=== PATIENT | female | born 1990 | race African-American/Black ===

== ENCOUNTER 2021-08-14 16:09 | Emergency (ER) | payer OTHER, SELFPAY ==
[2021-08-14 16:20] VITALS: BP 146/85; PULSE 100; RESP 18; TEMP 36.6; O2SAT 99
--- NOTE | 2021-08-14 16:43 | ED.URI ---
HPI - URI/Sore Throat General Chief Complaint: Upper Respiratory Infection Stated Complaint: Cough,Swelling Rt Neck,Headache Time Seen by Provider: 08/14/21 16:43 History of Present Illness HPI Narrative: Verna Palomino is a 31 yo female with PMH of hypothyroid, anxiety and depression, who comes to express care for a stiff neck and headache. Has taken 1 zyrtec and excedrin to treat it. Denies any fever, no nausea vomiting or diarrhea. Patient has a history of hives respond well to Excedrin Related Data Home Medications Medication Instructions Recorded Confirmed bupropion HCl 150 mg 24 hr tablet, 1 tablet PO DAILY 08/14/21 08/14/21 extended release drospirenone 3 mg-ethinyl 1 tablet PO DAILY 08/14/21 08/14/21 estradiol 0.02 mg tablet levothyroxine 50 mcg tablet 1 tablet PO DAILY 08/14/21 08/14/21 sertraline 100 mg tablet 1 tablet PO DAILY 08/14/21 08/14/21 Allergies Allergy/AdvReac Type Severity Reaction Status Date / Time No Known Allergies Allergy Verified 08/14/21 16:44 Review of Systems Review of Systems: CONSTITUTIONAL: Denies fever, chills, sweats. EYES: Denies visual changes, redness, discharge. ENT: Denies rhinorrhea, congestion, sore throat, otalgia.sore neck CARDIOVASCULAR: Denies chest pain, palpitations, edema. RESPIRATORY: Denies dyspnea, wheezing, cough GASTROINTESTINAL: Denies abdominal pain, nausea, vomiting, diarrhea. GENITOURINARY: Denies dysuria, hematuria, abnormal discharge SKIN: Denies rash or itching. NEUROLOGIC: Denies numbness, or focal weakness. PSYCHIATRIC: Denies anxiety or depression. PMFSH Past Medical History Medical History Anxiety Depression Hypothyroid Social History Social History (Updated 08/14/21 @ 17:18 by Geeta Guerra CNP) Smoking status: Never smoker Comments At time of signature, I agree with nursing past medical, surgical, social and family history. There is no relevant family history pertinent to the presenting complaint. Exam Narrative: GENERAL: This is a well-nourished, well-developed patient, in mild distress. HEAD: normocephalic, atraumatic. EYES:Sclera clear/white. Vision is grossly intact. EARS: External ears normal, auditory canals clear and without drainage, TMs normal without perforation. Hearing grossly intact. NOSE: External nose normal without nasal discharge, nares without redness, no rhinorrhea. THROAT: Mucous membranes moist, posterior pharynx pink NECK: Neck supple, non-tender has mild area of swelling on right side of pharynx near clavicle, mobile, noticed last 3 days CARDIOVASCULAR: Regular rate and rhythm without murmurs, gallops, or rubs. RESPIRATORY: Clear to auscultation. Breath sounds equal bilaterally. No wheezes, rales, or rhonchi. GASTROINTESTINAL: Abdomen soft, non-tender, SKIN: warm, intact with no suspicious lesions or rash, good texture and turgor. NEURO: awake, alert, and oriented to person, place and time. There were no obvious focal neurologic abnormalities. Steady gait EXTREMITIES: Normal range of motion. BACK: Nontender without deformity Course Course Emergency Course: Patient here with a headache and a mobile faint swelling at the base of right neck above clavicle Patient concerned about infection and she has had headache today Strep done COVID done-both negative Lesions does not look infective Patient to monitor size of lump and follow-up with primary care physician for further evaluation Level of Care: Express Care Visit Vital Signs Vital signs: Vital Signs Temperature 97.9 F 08/14/21 16:20 Pulse Rate 100 08/14/21 16:20 Respiratory Rate 18 08/14/21 16:20 Blood Pressure 146/85 H 08/14/21 16:20 Pulse Oximetry 99 08/14/21 16:20 Oxygen Delivery Room Air 08/14/21 16:20 Temperature 97.9 F 08/14/21 16:20 Pulse Rate 100 08/14/21 16:20 Respiratory Rate 18 08/14/21 16:20 Blood Pressure 146/85 H 08/14/21 16:20 Pu
== END 2021-08-14 17:23 | disposition home or self-care (01) ==
PROVIDERS: Emergency Provider Nurse Practitioner
DX: L98.9 Disorder of the skin and subcutaneous tissue, unspecified (principal); Z20.822 Contact with and (suspected) exposure to COVID-19; E03.9 Hypothyroidism, unspecified; F41.9 Anxiety disorder, unspecified; F32.A Depression, unspecified
CPT/HCPCS: 87081; 87426; 87880; 99203; C9803; G0463

== ENCOUNTER 2021-08-19 11:36 | Emergency (ER) | payer OTHER, SELFPAY ==
--- NOTE | 2021-08-19 11:36 | ED.EYEPROB ---
HPI - Eye Problem General Chief complaint: Eye Problems Stated complaint: LT Eye Irritation Time Seen by Provider: 08/19/21 11:36 Source: patient Mode of arrival: ambulatory Limitations: no limitations History of Present Illness HPI Narrative: Ms. Palomino is a 31-year-old female patient presented to the clinic today with complaints of left eye irritation x1 week. She reports she has tenderness and swelling to the left upper eyelid. Also notes that she has been getting a headache from this and having some floaters, denies any visual loss. States that she does have a history of migraine headaches and has auras where she loses her vision in her left eye however this pain is different than her normal migraine headaches are like. States this morning that her eyelid was swollen almost to the point where her eye was swollen shut and she applied a warm compress and this helped. She denies any purulent discharge coming from the eye however it has been watering. She denies any known foreign body getting in her eye or any injury to the left eye. States that she has been using some artificial tears however she noticed that this was so she stopped using them. Related Data Home Medications Medication Instructions Recorded Confirmed bupropion HCl 150 mg 24 hr tablet, 1 tablet PO DAILY 08/14/21 08/19/21 extended release drospirenone 3 mg-ethinyl 1 tablet PO DAILY 08/14/21 08/19/21 estradiol 0.02 mg tablet levothyroxine 50 mcg tablet 1 tablet PO DAILY 08/14/21 08/19/21 sertraline 100 mg tablet 1 tablet PO DAILY 08/14/21 08/19/21 Allergies Allergy/AdvReac Type Severity Reaction Status Date / Time No Known Allergies Allergy Verified 08/19/21 11:58 Review of Systems Review of Systems: Pertinent positives per HPI. Patient denies any fever, chills, rash, headache, dizziness, cough, runny nose, sore throat, shortness of breath, chest pain, palpitations, nausea, vomiting, diarrhea, constipation, abdominal pain, or any urinary issues. PMF Past Medical History Medical History Anxiety Depression Hypothyroid Social History Social History Smoking status: Never smoker Comments At the time of my signature, I reviewed and agree with the nursing past medical, surgical, social, and family history. There is no relevant family history pertinent to the patient complaint. Exam Narrative: General: Well-developed, well nourished, in no apparent distress Head: Normocephalic, atraumatic Eyes: Pupils equally round and reactive to light bilaterally, EOM intact, sclera mildly injected and conjunctive clear, no discharge, lids normal. Tenderness to palpation over the left upper mid medial eyelid without palpable mass. Attempted to invert the upper eyelid and no mass or pustule visualized. No FB visualized. Wood lamp exam performed and no corneal abrasion was visualized. Visual acuity 20/30 OU without corrective eyeware. Cardio: Regular rate and rhythm, s1 and s2 normal, no murmur appreciated. Resp: Clear to auscultation bilaterally anteriorly and posteriorly, no rhonchi, rales, wheezing or rubs Course Course Emergency Course: Portions of this record may have been created with voice recognition software. Level of Care: Express Care Visit Vital Signs Vital signs: Vital Signs Temperature 36.9 C 08/19/21 11:46 Pulse Rate 107 H 08/19/21 11:46 Respiratory Rate 16 08/19/21 11:46 Blood Pressure 140/93 H 08/19/21 11:46 Pulse Oximetry 99 08/19/21 11:46 Oxygen Delivery Room Air 08/19/21 11:46 Temperature 36.9 C 08/19/21 11:46 Pulse Rate 107 H 08/19/21 11:46 Respiratory Rate 16 08/19/21 11:46 Blood Pressure 140/93 H 08/19/21 11:46 Pulse Oximetry 99 08/19/21 11:46 Oxygen Delivery Room Air 08/19/21 11:46 Vital signs reviewed Procedures Other Procedure Procedure 1:
[2021-08-19 11:46] VITALS: BP 140/93; PULSE 107; RESP 16; TEMP 36.9; O2SAT 99
== END 2021-08-19 12:13 | disposition home or self-care (01) ==
PROVIDERS: Emergency Provider Nurse Practitioner Family
DX: H02.844 Edema of left upper eyelid (principal); H57.12 Ocular pain, left eye; E03.9 Hypothyroidism, unspecified; F41.9 Anxiety disorder, unspecified; F32.A Depression, unspecified
CPT/HCPCS: 99213; A9270; G0463